=== PATIENT | female | born 1990 | race Caucasian/White ===

== ENCOUNTER 2016-05-29 17:10 | Inpatient (IN) | payer OTHER ==
--- NOTE | ~2016-05-29 | CT16 ---
[facility] A Service of [facility] RADIOLOGY TEXT RESULTS PATIENT: EDWIGE HOFFMAN LOCATION: [facility] : [birth year] UNIT #: [id number] AGE: [address]: Haley Heaton MD SEX: F ORDER DR: [id number] [facility] [address] [place], [place] [address] [id number] E MR#: [id number] #: [id number] NAME: EDWIGE HOFFMAN : 1990 SEX: F STUDY DATE/TIME: 05/29/2016 18:51 UNIT: [facility] ROOM: STUDY DESCRIPTION: CT Angio Chest for PE Attending Physician: Garima Mendez M.D. Ordering Physician: Garima Mendez M.D. Primary Care Physician: Kashmir Jacinto M.D. MEDICAL IMAGING REPORT This report is preliminary unless electronic signature is present EXAM CT chest PE protocol. HISTORY Cough, shortness of air, overdose several days ago. This CT exam was performed with one or more of the following radiation dose reduction techniques: automatic exposure control, adjustment of mA and/or kV according to patient size, and iterative reconstruction. FINDINGS Axial images form through the chest following IV contrast. 3-D coronal and sagittal reconstructed images reviewed at a workstation. The examination demonstrates multifocal airspace disease, particularly in a perihilar distribution and most likely represents ARDS or less likely cardiogenic pulmonary edema. Multifocal pneumonia considered less likely given its diffuse nature and symmetry. No evidence of pulmonary embolus. Mild cardiomegaly. No effusions. Upper abdomen unremarkable. Thoracic inlet appears normal. Osseous structures and extrathoracic soft tissues appear normal. IMPRESSION 1. Extensive bilateral airspace disease, relatively symmetric within both upper lungs and also in the superior segments of the left lower lobe and right lower lobes. Findings most likely represent noncardiogenic pulmonary edema though cardiogenic cause not excluded as the patient does demonstrate borderline cardiomegaly. 2. No evidence of pulmonary embolus. 3. Please note, the pulmonary parenchymal changes could reflect pneumonia but given their symmetry and diffuse involvement pulmonary edema is favored. [facility] A Service of [facility] & [facility] RADIOLOGY TEXT RESULTS PATIENT: EDWIGE HOFFMAN LOCATION: [facility] [id number] : [birth year] UNIT #: [id number] AGE: [address]: Haley Heaton MD SEX: F ORDER DR: Dictated by... Vidal Powers M.D. THIS IS AN ELECTRONICALLY VERIFIED REPORT Vidal Powers M.D. at 05/30/2016 2:02 PM RITU/todd TD: 05/29/2016 21:52 JOB #: [id number] MEDICAL IMAGING REPORT Page 1 of 1 COPY
--- NOTE | ~2016-05-29 | CR72 ---
[facility] A Service of [facility] RADIOLOGY TEXT RESULTS PATIENT: EDWIGE HOFFMAN LOCATION: [facility] : 89 UNIT #: [id number] AGE: [address]: Haley Heaton MD SEX: F ORDER DR: [id number] [facility] [address] [place], [place] [address] [id number] E MR#: [id number] Acc #: [id number] NAME: EDWIGE HOFFMAN : 1990 SEX: F STUDY DATE/TIME: 05/29/2016 17:04 UNIT: [facility] ROOM: STUDY DESCRIPTION: CR Chest Single View Portable Attending Physician: Garima Mendez M.D. Ordering Physician: Garima Mendez M.D. Primary Care Physician: Kashmir Jacinto M.D. MEDICAL IMAGING REPORT This report is preliminary unless electronic signature is present EXAM Portable AP view of the chest COMPARISON August 12, 2015 and November 24, 2014. HISTORY 26-year-old female with dyspnea today. FINDINGS There are new patchy opacities seen within the right upper lobe with more confluent new opacity seen in the left upper lobe and lingula, highly suspicious for multifocal pneumonia. No evidence of pleural effusion. Cardiomediastinal silhouette is within normal limits for portable technique. No evidence of pneumothorax or pleural effusion. IMPRESSION Bilateral upper lobe and lingular opacities which are new from comparison, suspicious for pneumonia. Clinical correlation recommended. No pleural effusion. Dictated by... Paul Leon M.D. THIS IS AN ELECTRONICALLY VERIFIED REPORT Paul Leon M.D. at 06/03/2016 10:20 AM BLM/pcl TD: 05/29/2016 20:34 JOB #: [id number] [facility] A Service of [facility] RADIOLOGY TEXT RESULTS PATIENT: EDWIGE HOFFMAN LOCATION: [facility] : 89 UNIT #: [id number] AGE: [address]: Haley Heaton MD SEX: F ORDER DR: MEDICAL IMAGING REPORT Page 1 of 1 COPY
--- NOTE | ~2016-05-29 | EKG ---
PATIENT: EDWIGE HOFFMAN UNIT #: [id number] Ventricular Rate: 84 BPM Atrial Rate: 84 BPM P-R Interval: 148 ms QRS Duration: 82 ms Q-T Interval: 364 ms QTC Calculation(Bezet): 430 ms P Roy: 19 degrees Calculated R Roy: -2 degrees Calculated T Roy: 7 degrees Diagnosis Line: Normal sinus rhythm Diagnosis Line: Normal ECG Diagnosis Line: When compared with ECG of 24-NOV-2014 15:10, Diagnosis Line: No significant change was found Diagnosis Line: Confirmed by LARA CORTES MD ([id number]) on 05/30/2016 Diagnosis Line: 8:04:17 PM INTERPRETING MD: SEBASTIAN HUDDLESTON
--- NOTE | ~2016-05-29 | CR63 ---
[facility] A Service of [facility] & [facility] RADIOLOGY TEXT RESULTS PATIENT: EDWIGE HOFFMAN LOCATION: [facility]-01 : [birth year] UNIT #: [id number] AGE: [address]: Haley Heaton MD SEX: F ORDER DR: [id number] [facility] [address] [place], [place] [address] [id number] I MR#: [id number] Acc #: [id number] NAME: EDWIGE HOFFMAN : 1990 SEX: F STUDY DATE/TIME: 06/01/2016 7:39 UNIT: [facility] ROOM: [facility] STUDY DESCRIPTION: CR Chest 2 View Attending Physician: Haley Heaton M.D. Ordering Physician: Luis Miguel Simons M.D. Primary Care Physician: Kashmir Jacinto M.D. MEDICAL IMAGING REPORT This report is preliminary unless electronic signature is present EXAM 2-view chest 06/01/2016 HISTORY 26-year-old female with shortness of air and cough for 4 days. COMPARISON Chest 05/29/2016. CT chest 05/29/2016. FINDINGS 2 views of the chest demonstrate significant interval improvement in aeration throughout both lungs. No significant pulmonary opacities noted on today's study. No pleural effusion or pneumothorax. Heart size is upper limits. Mediastinum and pulmonary vasculature unremarkable. IMPRESSION Interval clearing of previously noted bilateral pulmonary infiltrates. Borderline heart size. Dictated by... Tacho Prince M.D. THIS IS AN ELECTRONICALLY VERIFIED REPORT Tacho Prince M.D. at 06/02/2016 8:13 AM KEELY/ronnie TD: 06/02/2016 01:31 JOB #: [id number] MEDICAL IMAGING REPORT Page 1 of 1 COPY
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
[~2016-05-29 17:10] MED LIST: CEFTRIAXONE2 GM IV; CUBICIN IV; LORTAB 5-325 M1 EACH PO; NO MEDICATIONS
[2016-05-29 17:26] LABS: BASOPHIL% 0.3 % (0-2.5); EOSINOPHIL# 0.1 X10e3 (0-0.7); EOSINOPHIL% 0.6 % (0.0-7.0); HEMATOCRIT 40.3 % (35.0-45.0); HEMOGLOBIN 13.5 gm/dL (12.0-16.0); LYMPHOCYTE# 3.1 X10e3 (1.0-3.5); LYMPHOCYTE% 22.4 % (17.0-45.0); MEAN CELL VOLUME 85.9 FL (83-96); MEAN CORPUSCULAR HEMOGLOBIN 28.8 PG (28-34); MEAN CORPUSCULAR HGB CONC 33.6 g/dL (30-36); MEAN PLATELET VOLUME 7.4 FL (6.5-11.5); MONOCYTE# 0.7 X10e3 (0-1.0); MONOCYTE% 5.1 % (3.0-12.0); NEUTROPHIL% 71.6 % (40-75); PLATELET COUNT 287 X10e3 (140-420); RED BLOOD COUNT 4.69 X10e (3.90-5.30); RED CELL DISTRIBUTION WIDTH 13.8 % (11.0-15.5)
[2016-05-29 17:27] LABS: DIFF IND NO
[2016-05-29 17:39] LABS: INFLUENZA A NEG (NEG)
[2016-05-29 17:40] LABS: INFLUENZA B NEG (NEG)
[2016-05-29 17:42] LABS: POC - CKMB 1.7 ng/mL (0.0-7.9); POC - TROPONIN <0.05 ng/mL (<=0.05)
[2016-05-29 17:50] LABS: BUN/CREATININE RATIO 12.5; CALCIUM SERUM 9.1 mg/dL (8.4-10.2); CREATININE SERUM 0.8 mg/dL (0.6-1.4); GLOM FILT RATE Estimated 101.1 mL/min (>60); POTASSIUM 3.4 mmol/L (3.5-5.1)
[2016-05-29 18:40] LABS: AMPHETAMINE POS (NEG); BARBITURATES NEG (NEG); BENZODIAZEPINES NEG (NEG); COCAINE NEG (NEG); MARIJUANA NEG (NEG); OPIATES POS (NEG); TRICYCLIC ANTIDEPRESSANTS NEG (NEG); U METHADONE NEG (NEG)
[2016-05-29] MEDS ORDERED: SEROQUEL PO (20:39)
[2016-05-30 01:31] LABS: BASOPHIL% 0.1 % (0-2.5); EOSINOPHIL% 0.1 % (0.0-7.0); HEMATOCRIT 44.5 % (35.0-45.0); HEMOGLOBIN 14.9 gm/dL (12.0-16.0); LYMPHOCYTE# 1.6 X10e3 (1.0-3.5); LYMPHOCYTE% 12.7 % (17.0-45.0); MEAN CELL VOLUME 86.5 FL (83-96); MEAN CORPUSCULAR HEMOGLOBIN 28.9 PG (28-34); MEAN CORPUSCULAR HGB CONC 33.5 g/dL (30-36); MEAN PLATELET VOLUME 7.8 FL (6.5-11.5); MONOCYTE# 0.3 X10e3 (0-1.0); MONOCYTE% 2.1 % (3.0-12.0); NEUTROPHIL# 10.6 X10e3 (1.5-7.1); PLATELET COUNT 321 X10e3 (140-420); RED BLOOD COUNT 5.15 X10e (3.90-5.30); RED CELL DISTRIBUTION WIDTH 13.9 % (11.0-15.5); WHITE BLOOD COUNT 12.5 X10e3 (4.0-10.5)
[2016-05-30 01:32] LABS: DIFF IND NO
[2016-05-30 03:20] LABS: ALBUMIN SERUM 4.1 g/dL (3.5-5.0); BUN/CREATININE RATIO 11.25; CALCIUM SERUM 9.4 mg/dL (8.4-10.2); CREATININE SERUM 0.8 mg/dL (0.6-1.4); GLOM FILT RATE Estimated 101.1 mL/min (>60); POTASSIUM 3.8 mmol/L (3.5-5.1)
[2016-05-30 03:38] LABS: %MB 6.1 % (0.0-4.0); MB 5.4 ng/ml
[2016-05-30 07:39] LABS: BASOPHIL% 0.1 % (0-2.5); HEMOGLOBIN 13.6 gm/dL (12.0-16.0); LYMPHOCYTE# 1.3 X10e3 (1.0-3.5); LYMPHOCYTE% 14.7 % (17.0-45.0); MEAN CELL VOLUME 85.8 FL (83-96); MEAN CORPUSCULAR HEMOGLOBIN 29.1 PG (28-34); MEAN PLATELET VOLUME 7.7 FL (6.5-11.5); MONOCYTE# 0.2 X10e3 (0-1.0); MONOCYTE% 2.3 % (3.0-12.0); NEUTROPHIL# 7.3 X10e3 (1.5-7.1); NEUTROPHIL% 82.9 % (40-75); PLATELET COUNT 320 X10e3 (140-420); RED BLOOD COUNT 4.66 X10e (3.90-5.30); WHITE BLOOD COUNT 8.8 X10e3 (4.0-10.5)
[2016-05-30 07:46] LABS: DIFF IND NO
[2016-05-30 08:08] LABS: ALBUMIN SERUM 3.6 g/dL (3.5-5.0); BILIRUBIN,TOTAL 0.8 mg/dL (0.2-2.0); CALCIUM SERUM 9.2 mg/dL (8.4-10.2); CREATININE SERUM 0.6 mg/dL (0.6-1.4); GLOM FILT RATE Estimated 124.9 mL/min (>60); POTASSIUM 4.1 mmol/L (3.5-5.1); PROTEIN TOTAL SERUM 7.6 g/dL (6.0-8.3)
[2016-05-30 15:00] LABS: THYROID STIMULATING HORMONE 0.23 uIU/ml (0.34-5.60)
[2016-05-30 15:07] LABS: FREE THYROXIN (T4) 1.06 ng/dL (0.58-1.64)
[2016-05-31 07:30] LABS: HEMATOCRIT 39.1 % (35.0-45.0); HEMOGLOBIN 13.1 gm/dL (12.0-16.0); MEAN CELL VOLUME 86.4 FL (83-96); MEAN CORPUSCULAR HGB CONC 33.6 g/dL (30-36); MEAN PLATELET VOLUME 7.5 FL (6.5-11.5); RED BLOOD COUNT 4.53 X10e (3.90-5.30); RED CELL DISTRIBUTION WIDTH 13.8 % (11.0-15.5)
[2016-05-31 08:15] LABS: BUN/CREATININE RATIO 21.66; CALCIUM SERUM 8.8 mg/dL (8.4-10.2); CREATININE SERUM 0.6 mg/dL (0.6-1.4); GLOM FILT RATE Estimated 124.9 mL/min (>60); MAGNESIUM 1.8 mg/dL (1.6-3.0)
[2016-06-01] MEDS ORDERED: AUGMENTIN PO (12:14)
== END 2016-06-01 13:17 | disposition home or self-care (01) | DRG 917 ==
LOC: CED 17:10 → CEDOF 22:10 → C5C 05-30 11:13
PROVIDERS: Emergency Medicine; Internal Medicine; Physician Assistant Medical
PROC: B246ZZZ Ultrasonography of Right and Left Heart (ICD-10-PCS; principal; 2016-05-30)
DX: T40.1X1A Poisoning by heroin, accidental (unintentional), initial encounter (principal); A41.9 Sepsis, unspecified organism; J69.0 Pneumonitis due to inhalation of food and vomit; Y92.009 Unspecified place in unspecified non-institutional (private) residence as the place of occurrence of the external cause; B19.20 Unspecified viral hepatitis C without hepatic coma; Z88.0 Allergy status to penicillin; Z82.49 Family history of ischemic heart disease and other diseases of the circulatory system
CPT/HCPCS: 36415; 71010; 71020; 71275; 80048; 80053; 80202; 80307; 82308; 82550; 82553; 83605; 83735; 83880; 84439; 84443; 84484; 84703; 85025; 85027; 85379; 87040; 87804; 87806; 93005; 93306; 94640; 96374; 96375; 99285; J1650; J1940; J1956; J2920; J2930; J3370; Q9967